=== PATIENT | female | born 1935 | race Caucasian/White ===

== ENCOUNTER 2020-10-15 20:40 | Observation (INO) ==
[2020-10-15] MEDS ORDERED: 0.9 % SODIUM CHLORIDE 1,000 ML IV ONE (21:13)
[2020-10-15] MEDS ORDERED: DIPH,PERTUSS(ACELL),TET VAC/PF 0.5 ML SYRINGE IM ONE (21:13)
--- NOTE | 2020-10-15 21:25 | Emergency Department Note ---
Syncope HPI General Chief Complaint: Syncope Stated Complaint: fainted Time Seen by Provider: 10/15/20 21:03 Source: patient, family, EMS, RN notes reviewed and old records reviewed Mode of arrival: EMS Limitations: no limitations and physical limitation History of Present Illness HPI Narrative: Narrative: A delightful 85-year-old female is brought in by EMS for syncope. The patient was seen earlier today for UTI and hip pain. She was treated with Macrobid and [place]. While back at her care facility the patient was attempting to stand up from the bedside commode after urination and had a syncopal event. Her nurse caregiver was at her bedside and held her and lowered her to the floor. She was not dropped nor does she complain of any other injuries or pain at this time. She denies preceding illness other than the UTI. She is not complaining of a headache or neck pain at this point in time. Continues to complain of hip pain. She there was no tonic-clonic activity per her caregiver there was no loss of bowel or bladder control per her caregiver. MD Complaint: loss of consciousness, felt faint and collapsed Onset (ago): hour(s) (1) Prodromal Symptoms: lightheaded -: second(s) Witnessed: yes - by other (EXTENSION ASSOCIATE) Context: after urination and standing up Injuries Sustained Associated with Event: none Current Symptoms: none History: other (Seen earlier today in this emergency department for UTI and hip pain) Treatments prior to arrival: none Related Data Home Medications Medication Instructions Recorded Confirmed acetaminophen 500 mg tablet 500 mg PO Q6H PRN 10/29/18 09/12/20 ferrous sulfate 325 mg (65 mg 325 mg PO QDAY 02/15/20 09/12/20 iron) tablet donepezil 5 mg tablet 10 mg PO QDAY tab 05/12/20 09/12/20 dexamethasone 4 mg tablet 6 mg PO QDAY tab 05/21/20 09/12/20 furosemide 20 mg tablet 20 mg PO QDAY PRN 06/05/20 09/12/20 multivitamin 1 tab PO QDAY tab 06/05/20 09/12/20 pantoprazole 40 mg tablet,delayed 40 mg PO QDAY tab 06/05/20 09/12/20 release hydrocodone 5 mg-acetaminophen 325 1 - 2 tab PO Q4-6H PRN tab 07/10/20 09/12/20 mg tablet Previous Rx's Medication Instructions Recorded memantine 10 mg tablet 10 mg PO QPM #90 tab 09/21/19 midodrine 5 mg tablet 2.5 mg PO TID #135 tab 12/19/19 mirabegron 50 mg tablet,extended See Rx Instructions .ROUTE 02/27/20 release 24 hr .COMPLEX #30 each hydrocodone 5 mg-acetaminophen 325 1 tab PO Q8H PRN #15 tab 08/09/20 mg tablet atorvastatin 10 mg tablet 10 mg PO QHS #90 tab 10/04/20 hydrocodone-acetaminophen 1 tab PO Q4H PRN #12 tab 10/15/20 nitrofurantoin monohyd/m-cryst 100 mg PO Q12H 7 Days #14 cap 10/15/20 [Macrobid] Allergies Allergy/AdvReac Type Severity Reaction Status Date / Time Sulfa (Sulfonamide Allergy Severe Hives Verified 08/15/20 08:01 Antibiotics) alendronate sodium AdvReac Mild GI upset Verified 08/15/20 08:01 [From Fosamax] ibuprofen [From Motrin] AdvReac Mild GI upset Verified 08/15/20 08:01 metformin AdvReac Mild diarrhea Verified 08/15/20 08:01 hydrocodone AdvReac Verified 10/15/20 20:50 Review of Systems ROS ROS Narrative: Narrative: All systems ED: reviewed and negative except as stated. PFSH Narrative Patient History Narrative: Narrative: Medical/Surgical/Family History All Active Problems (Updated 10/15/20 @ 23:56 by Nathanael Hensley MD) Injury of hip, left (Acute) Acute UTI (Acute) Syncope and collapse (Acute) Fracture of metatarsal of left foot, closed (Acute) S/P colectomy (Acute) Colonic mass (Acute) History of bloody stools (Acute) History of anemia (Acute) Shakiness (Acute) Anemia (Acute) Heme positive stool (Acute) Heart murmur (Acute) SOB (shortness of breath) (Acute) Urinary tract infection (Acute) Postural hypotension (Chronic) Dementia (Chronic) GERD (gastroesophageal reflux disease) (Chronic) Hyperlipidemia (Chronic) Urinary incontinence (Chronic) Dyslipidemia (Chronic) Iron deficiency anemia (Chronic) COVID-19 (Chronic) H/O knee surgery (Chronic) 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) Fatigue (Chronic) Syncope due to orthostatic hypotension (Chronic) Hyponatremia (Chronic) BPPV (benign paroxysmal positional vertigo) (Chronic) Alzheimer disease (Chronic) Diastolic congestive heart failure (Chronic) Sinus bradycardia (Chronic) Hyperlipidemia (Chronic) Postural hypotension (Chronic) Dementia (Chronic) GERD (gastroesophageal reflux disease) (Chronic) Diabetes mellitus type II, controlled (Chronic) Edema (Chronic) Exposure to TB (Chronic) High cholesterol (Chronic) Heart trouble (Chronic) Type 2 diabetes mellitus (Chronic ~2007) Depression (Chronic) Arthritis (Chronic ~1989) Anemia (Chronic) Medical History Alzheimer disease Anemia Arthritis (~1989) BPPV (benign paroxysmal positional vertigo) COVID-19 Dementia Dementia Depression Diabetes mellitus type II, controlled Diastolic congestive heart failure Dyslipidemia Edema Exposure to TB Childhood, [id number] Fatigue Fracture of metatarsal of left foot, closed GERD (gastroesophageal reflux disease) GERD (gastroesophageal reflux disease) Heart trouble High cholesterol History of anemia History of bloody stools Hyperlipidemia Hyperlipidemia Hyponatremia Iron deficiency anemia Pigmented skin lesion of suspected malignant nature Postural hypotension Postural hypotension Sinus bradycardia Syncope due to orthostatic hypotension Type 2 diabetes mellitus (~2007) Urinary incontinence Surgical History H/O knee surgery Bilateral History of cholecystectomy (~1971) Family History Father Heart attack Mother Tuberculosis Social History Smoking Status: Never smoker Alcohol Intake Frequency: holiday/special occasion only Substance Use: does not use Exam Narrative Narrative: Narrative: General Limitations: no limitations and physical limitation General appearance: Present alert, in no apparent distress and thin Head Head: Present atraumatic, normocephalic and normal inspection Eye Eye: Present normal appearance, PERRL and EOMI; Absent scleral icterus, conjunctival injection and periorbital swelling ENT ENT: Present normal exam, normal oropharynx, mucous membranes moist and normal external ear exam Neck Neck: Present normal inspection, full ROM and trachea midline; Absent tenderness, lymphadenopathy and thyromegaly Chest Chest: Present normal inspection and symmetric chest wall rise; Absent tenderness Respiratory Respiratory: Present normal lung sounds bilaterally; Absent respiratory distre ss, wheezes, stridor, accessory muscle use and prolonged expiratory phase Cardiovascular Cardiovascular: Present regular rate and normal rhythm; Absent systolic murmur and diastolic murmur Adbominal Abdominal: Present soft and normal bowel sounds; Absent distention, tenderness, guarding, rebound, rigidity, organomegaly and mass Extremities Extremities: Present normal inspection, full ROM, tenderness and normal capillary refill; Absent pedal edema, pretibial edema and calf tenderness Back Back: Present normal inspection and full ROM; Absent tenderness, CVA tenderness (R), CVA tenderness (L) and spinous process tenderness Neurological Neurological: Present alert, oriented X3 and CN II-XII intact; Absent motor sensory deficit Psychiatric Psychiatric: Present normal affect and normal mood Skin Skin: Present warm (WNL), dry and other (Skin tear on right castillo) Course Vital Signs Vital signs: Vital Signs Temperature 97.4 F 10/15/20 20:41 Pulse Rate 80 10/15/20 20:41 Respiratory Rate 18 10/15/20 20:41 Blood Pressure 139/50 10/15/20 20:41 Pulse Oximetry (%) 98 10/15/20 20:41 Temperature 97.4 F 10/15/20 20:41 Pulse Rate 102 H 10/15/20 23:31 Respiratory Rate 18 10/15/20 20:41 Blood Pressure 126/71 10/15/20 23:31 Pulse Oximetry (%) 94 10/15/20 23:31 [facility] MDM Narrative Medical decision making narrative: Narrative: Medical Records Medical records reviewed: Yes I reviewed the patient's medical records. Lab Data Result diagrams: 10/15/20 21:40 10/15/20 21:40 Labs: Lab Results 10/15/20 10/15/20 10/15/20 Range/Units 21:40 21:40 21:40 WBC 12.0 H (4.5-11.0) K/mcL RBC 3.11 L (4.00-5.20) M/mcL Hgb 10.1 L (12.0-15.0) g/dL Hct 30.7 L (36.0-48.0) % MCV 98.7 (80.0-100.0) fL MCH 32.5 (26.0-34.0) pg MCHC 32.9 (31.0-36.0) g/dL RDW 13.2 (11.5-14.5) % Plt Count 207 (140-440) K/mcL MPV 9.7 (7.4-10.4) fL Neut % (Auto) 82.3 H (38.0-78.0) % Lymph % (Auto) 9.6 L (15.0-49.0) % [place] % (Auto) 7.1 (1.0-12.0) % Eos % (Auto) 0.3 (0.0-7.0) % Baso % (Auto) 0.7 (0.0-2.0) % Lymph # (Auto) 1.15 L (1.50-4.80) K/mcL [place] # (Auto) 0.85 (0.10-0.90) K/mcL Eos # (Auto) 0.04 (0.00-0.70) K/mcL Baso # (Auto) 0.08 (0.00-0.20) K/mcL Absolute Neutrophils 9.88 H (1.80-8.00) K/mcL VBG Lactic Acid 0.8 (0.5-2.0) mmol/L Sodium 135 (133-145) mmol/L Potassium 3.9 (3.3-5.1) mmol/L Chloride 97 (96-108) mmol/L Carbon Dioxide 26 (22-30) mmol/L Anion Gap 12.0 (8.0-16.0) BUN 18 (8-23) mg/dL Creatinine 1.1 (0.6-1.1) mg/dL GFR Calculation 45 Glucose 124 H (70-105) mg/dL Calcium 9.1 (8.6-10.4) mg/dL Total Bilirubin 0.4 (0.1-1.0) mg/dL AST 19 (<32) U/L ALT 14 (<40) U/L Alkaline Phosphatase 71 (39-117) U/L Total Creatine Kinase 95 (24-170) U/L Troponin T (<0.03) ng/mL Total Protein 6.8 (5.9-8.4) gm/dL Albumin 4.2 (3.2-5.2) gm/dL Globulin 2.6 (2.2-3.7) gm/dL Albumin/Globulin Ratio 1.6 (1.0-2.3) 10/15/20 Range/Units 21:40 WBC (4.5-11.0) K/mcL RBC (4.00-5.20) M/mcL Hgb (12.0-15.0) g/dL Hct (36.0-48.0) % MCV (80.0-100.0) fL MCH (26.0-34.0) pg MCHC (31.0-36.0) g/dL RDW (11.5-14.5) % Plt Count (140-440) K/mcL MPV (7.4-10.4) fL Neut % (Auto) (38.0-78.0) % Lymph % (Auto) (15.0-49.0) % [place] % (Auto) (1.0-12.0) % Eos % (Auto) (0.0-7.0) % Baso % (Auto) (0.0-2.0) % Lymph # (Auto) (1.50-4.80) K/mcL [place] # (Auto) (0.10-0.90) K/mcL Eos # (Auto) (0.00-0.70) K/mcL Baso # (Auto) (0.00-0.20) K/mcL Absolute Neutrophils (1.80-8.00) K/mcL VBG Lactic Acid (0.5-2.0) mmol/L Sodium (133-145) mmol/L Potassium (3.3-5.1) mmol/L Chloride (96-108) mmol/L Carbon Dioxide (22-30) mmol/L Anion Gap (8.0-16.0) BUN (8-23) mg/dL Creatinine (0.6-1.1) mg/dL GFR Calculation Glucose (70-105) mg/dL Calcium (8.6-10.4) mg/dL Total Bilirubin (0.1-1.0) mg/dL AST (<32) U/L ALT (<40) U/L Alkaline Phosphatase (39-117) U/L Total Creatine Kinase (24-170) U/L Troponin T < 0.01 (<0.03) ng/mL Total Protein (5.9-8.4) gm/dL Albumin (3.2-5.2) gm/dL Globulin (2.2-3.7) gm/dL Albumin/Globulin Ratio (1.0-2.3) ED POC Tests ED POC Tests: ELIU - SARS Antigen Negative Radiology Data Radiology results reviewed: Yes I reviewed the patient's radiology results. Radiology results narrative: Head CT is no acute intracranial abnormality. Chest x-ray COPD pattern NAD, pelvis NAD. Pulse Oximetry Data Pulse Ox %: 94 Interpretation: 94% on room air within normal limits. Discharge Plan Patient/Caregiver Discharge Instructions Pt seen by ACCOUNT MAINTENANCE REPRESENTATIVE/PA only: No Clinical Impression: Syncope and collapse Patient Disposition: Xfer As Inpt ([facility]) Condition: Good Follow up with: Gregory Suarez DO [Primary Care Provider] - Prescriptions: No Action midodrine 5 mg tablet 2.5 mg PO TID Qty: 135 RF: 3 mirabegron [Myrbetriq] 50 mg tablet extended release 24 hr See Rx Instructions .ROUTE .COMPLEX Qty: 30 RF: 10 atorvastatin 10 mg tablet 10 mg tablet 10 mg PO QHS Qty: 90 RF: 1 memantine 10 mg tablet 10 mg PO QPM Qty: 90 RF: 3 ferrous sulfate 325 mg (65 mg iron) tablet 325 mg PO QDAY RF: 0 acetaminophen [Tylenol Extra Strength] 500 mg tablet 500 mg PO Q6H PRN (Reason: Pain) RF: 0 multivitamin Tablet 1 tab PO QDAY RF: 0 dexamethasone 4 mg tablet 6 mg PO QDAY RF: 0 donepezil 5 mg tablet 10 mg PO QDAY RF: 0 hydrocodone-acetaminophen 5-325 mg tablet 1 tab PO Q8H PRN (Reason: pain) Qty: 15 RF: 0 pantoprazole 40 mg tablet,delayed release (DR/EC) 40 mg PO QDAY RF: 0 furosemide 20 mg tablet 20 mg PO QDAY PRNRF: 0 hydrocodone-acetaminophen 5-325 mg tablet 1 - 2 tab PO Q4-6H PRNRF: 0 hydrocodone-acetaminophen 5-325 mg tablet 1 tab PO Q4H PRN (Reason: pain) Qty: 12 RF: 0 nitrofurantoin monohyd/m-cryst [Macrobid] 100 mg capsule 100 mg PO Q12H 7 Days Qty: 14 RF: 0
[2020-10-15] MEDS ORDERED: cefTRIAXone 1 GM VIAL IV ONE (22:00)
[2020-10-15 23:06] LABS: Basophils # (Auto) 0.08 K/mcL (0.00-0.20); Basophils % (Auto) 0.7 % (0.0-2.0); Eosinophils # (Auto) 0.04 K/mcL (0.00-0.70); Eosinophils % (Auto) 0.3 % (0.0-7.0); Hematocrit 30.7 % (36.0-48.0); Hemoglobin 10.1 g/dL (12.0-15.0); Lymphocytes # (Auto) 1.15 K/mcL (1.50-4.80); Lymphocytes % (Auto) 9.6 % (15.0-49.0); Mean Cell Volume 98.7 fL (80.0-100.0); Mean Corpuscular HGB Conc 32.9 g/dL (31.0-36.0); Mean Platelet Volume 9.7 fL (7.4-10.4); Monocytes # (Auto) 0.85 K/mcL (0.10-0.90); Monocytes % (Auto) 7.1 % (1.0-12.0); Neutrophils % (Auto) 82.3 % (38.0-78.0); Platelet Count 207 K/mcL (140-440); RBC 3.11 M/mcL (4.00-5.20); Red Cell Distribution Width 13.2 % (11.5-14.5)
[2020-10-15 23:32] LABS: Creatine Kinase 95 U/L (24-170)
[2020-10-15 23:33] LABS: ALT/SGPT 14 U/L (<40); AST/SGOT 19 U/L (<32); Albumin 4.2 gm/dL (3.2-5.2); Albumin/Globulin Ratio 1.6 (1.0-2.3); Alkaline Phosphatase 71 U/L (39-117); Bilirubin,Total 0.4 mg/dL (0.1-1.0); Blood Urea Nitrogen 18 mg/dL (8-23); Calcium 9.1 mg/dL (8.6-10.4); Carbon Dioxide 26 mmol/L (22-30); Chloride 97 mmol/L (96-108); Globulin 2.6 gm/dL (2.2-3.7); Glomerular Filtration Rate 45; Glucose 124 mg/dL (70-105)
--- NOTE | 2020-10-16 07:12 | Internal Med History&Physical ---
HPI History of Present Illness Patient information: Note initiated : 10/16/20 at 7:08 am Service Date, if different from initiated Date: [] Patient: Shannan Canseco 85 y/o F admitted on 10/16/20 for fainted. Chief Complaint: [] History of present illness: Ms. Canseco is a 85 year old F Patient presented ED yesterday after fall. Was found to have urinary tract infection. Sent back to the nursing facility where after going to the bathroom she got up and had a syncopal episode. She was brought back into the ED and had a repeat pelvis chest and head imaging which was unremarkable. Sinus rhythm. Has some hip pain where she fall but otherwise no complaints. Review of Systems: Pertinent positives as above. Denies headache/fever/chills/nausea/vomiting/chest or abdominal pain/cough/dyspnea/diarrhea. Remaining 10 point review of system reviewed negative PFSH PFSH All Active Problems (Updated 10/15/20 @ 23:56 by Nathanael Hensley MD) Injury of hip, left (Acute) Acute UTI (Acute) Syncope and collapse (Acute) Fracture of metatarsal of left foot, closed (Acute) S/P colectomy (Acute) Colonic mass (Acute) History of bloody stools (Acute) History of anemia (Acute) Shakiness (Acute) Anemia (Acute) Heme positive stool (Acute) Heart murmur (Acute) SOB (shortness of breath) (Acute) Urinary tract infection (Acute) Postural hypotension (Chronic) Dementia (Chronic) GERD (gastroesophageal reflux disease) (Chronic) Hyperlipidemia (Chronic) Urinary incontinence (Chronic) Dyslipidemia (Chronic) Iron deficiency anemia (Chronic) COVID-19 (Chronic) H/O knee surgery (Chronic) 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) Fatigue (Chronic) Syncope due to orthostatic hypotension (Chronic) Hyponatremia (Chronic) BPPV (benign paroxysmal positional vertigo) (Chronic) Alzheimer disease (Chronic) Diastolic congestive heart failure (Chronic) Sinus bradycardia (Chronic) Hyperlipidemia (Chronic) Postural hypotension (Chronic) Dementia (Chronic) GERD (gastroesophageal reflux disease) (Chronic) Diabetes mellitus type II, controlled (Chronic) Edema (Chronic) Exposure to TB (Chronic) High cholesterol (Chronic) Heart trouble (Chronic) Type 2 diabetes mellitus (Chronic ~2007) Depression (Chronic) Arthritis (Chronic ~1989) Anemia (Chronic) Medical History Alzheimer disease Anemia Arthritis (~1989) BPPV (benign paroxysmal positional vertigo) COVID-19 Dementia Dementia Depression Diabetes mellitus type II, controlled Diastolic congestive heart failure Dyslipidemia Edema Exposure to TB Childhood, [id number] Fatigue Fracture of metatarsal of left foot, closed GERD (gastroesophageal reflux disease) GERD (gastroesophageal reflux disease) Heart trouble High cholesterol History of anemia History of bloody stools Hyperlipidemia Hyperlipidemia Hyponatremia Iron deficiency anemia Pigmented skin lesion of suspected malignant nature Postural hypotension Postural hypotension Sinus bradycardia Syncope due to orthostatic hypotension Type 2 diabetes mellitus (~2007) Urinary incontinence Surgical History H/O knee surgery Bilateral History of cholecystectomy (~1971) Family History Father Heart attack Mother Tuberculosis Social History marital status: occupational status: retired alcohol intake frequency: holiday/special occasion only substance use type: does not use MEDS/ALLERGIES Home Medications and Allergies Home Medications Medication Instructions Recorded Confirmed Type acetaminophen 500 mg tablet 500 mg PO Q6H PRN 10/29/18 10/16/20 History memantine 10 mg tablet 10 mg PO QPM #90 tab 09/21/19 10/16/20 Rx midodrine 5 mg tablet 2.5 mg PO TID #135 tab 12/19/19 10/16/20 Rx ferrous sulfate 325 mg (65 mg 325 mg PO QDAY 02/15/20 10/16/20 History iron) tablet mirabegron 50 mg tablet,extended See Rx Instructions .ROUTE 02/27/20 10/16/20 Rx release 24 hr .COMPLEX #30 each donepezil 5 mg tablet 10 mg PO QDAY tab 05/12/20 10/16/20 History furosemide 20 mg tablet 20 mg PO QDAY PRN 06/05/20 10/16/20 History multivitamin 1 tab PO QDAY tab 06/05/20 10/16/20 History pantoprazole 40 mg tablet,delayed 40 mg PO QDAY tab 06/05/20 10/16/20 History release hydrocodone 5 mg-acetaminophen 325 1 - 2 tab PO Q4-6H PRN tab 07/10/20 10/16/20 History mg tablet hydrocodone 5 mg-acetaminophen 325 1 tab PO Q8H PRN #15 tab 08/09/20 10/16/20 Rx mg tablet atorvastatin 10 mg tablet 10 mg PO QHS #90 tab 10/04/20 10/16/20 Rx hydrocodone-acetaminophen 1 tab PO Q4H PRN #12 tab 10/15/20 10/16/20 Rx nitrofurantoin monohyd/m-cryst 100 mg PO Q12H 7 Days #14 cap 10/15/20 10/16/20 Rx [Macrobid] Allergies Allergy/AdvReac Type Severity Reaction Status Date / Time Sulfa (Sulfonamide Allergy Severe Hives Verified 08/15/20 08:01 Antibiotics) alendronate sodium AdvReac Mild GI upset Verified 08/15/20 08:01 [From Fosamax] ibuprofen [From Motrin] AdvReac Mild GI upset Verified 08/15/20 08:01 metformin AdvReac Mild diarrhea Verified 08/15/20 08:01 hydrocodone AdvReac Verified 10/15/20 20:50 EXAM Constitutional Vitals: Temp Pulse Resp BP Pulse Ox 98.1 F 78 16 151/74 98 10/16/20 02:51 10/16/20 02:51 10/16/20 02:51 10/16/20 02:51 10/16/20 02:51 Exam: General: Alert, Awake, No acute Distress Eyes/N/T: EOMI, PERRL, dry MM Head/Neck: neck supple, normocephalic atraumatic CV: RRR, 2/6 SM , normal s1/s2 Pulm: Clear b/l, no wheezing/rhonchi/rales Abd: soft, nontender, +BS x4 Ext: no clubbing/cyanosis/edema Neuro: Alert, no focal deficits, moves all extremities, CN 2-12 grossly intact, symmetrical strength b/l upper/lower, sensations intact b/l upper/lower Skin: warm/dry DATA Data Completed and Pending Labs: Labs from last 24 hours 10/16/20 10/16/20 10/15/20 06:17 06:17 21:40 WBC Pending RBC Pending Hgb Pending Hct Pending MCV Pending MCH Pending MCHC Pending RDW Pending Plt Count Pending MPV Pending Neut % (Auto) Pending Lymph % (Auto) [place] % (Auto) Eos % (Auto) Baso % (Auto) Lymph # (Auto) [place] # (Auto) Eos # (Auto) Baso # (Auto) Absolute Neutrophils VBG Lactic Acid Sodium Pending Potassium Pending Chloride Pending Carbon Dioxide Pending Anion Gap Pending BUN Pending Creatinine Pending GFR Calculation Pending Glucose Pending Uric Acid Pending Calcium Pending Phosphorus Pending Magnesium Pending Total Bilirubin Pending Direct Bilirubin Pending GGT Pending AST Pending ALT Pending Alkaline Phosphatase Pending Lactate Dehydrogenase Pending Total Creatine Kinase Troponin T < 0.01 Total Protein Pending Albumin Pending Globulin Pending Albumin/Globulin Ratio Pending Triglycerides Pending 10/15/20 10/15/20 10/15/20 21:40 21:40 21:40 WBC 12.0 H RBC 3.11 L Hgb 10.1 L Hct 30.7 L MCV 98.7 MCH 32.5 MCHC 32.9 RDW 13.2 Plt Count 207 MPV 9.7 Neut % (Auto) 82.3 H Lymph % (Auto) 9.6 L [place] % (Auto) 7.1 Eos % (Auto) 0.3 Baso % (Auto) 0.7 Lymph # (Auto) 1.15 L [place] # (Auto) 0.85 Eos # (Auto) 0.04 Baso # (Auto) 0.08 Absolute Neutrophils 9.88 H VBG Lactic Acid 0.8 Sodium 135 Potassium 3.9 Chloride 97 Carbon Dioxide 26 Anion Gap 12.0 BUN 18 Creatinine 1.1 GFR Calculation 45 Glucose 124 H Uric Acid Calcium 9.1 Phosphorus Magnesium Total Bilirubin 0.4 Direct Bilirubin GGT AST 19 ALT 14 Alkaline Phosphatase 71 Lactate Dehydrogenase Total Creatine Kinase 95 Troponin T Total Protein 6.8 Albumin 4.2 Globulin 2.6 Albumin/Globulin Ratio 1.6 Triglycerides A/P Narrative A/P Narrative: A: *Vasovagal versus orthostatic hypotension (h/o orthostatic hypotension) syncope: -is on midodrine for orthostatic hypotension *UTI: *Generalized weakness/deconditioning: *Dementia: *GERD: *h/o grade I diastolic dysfunction: P: -IVF -orthostatic VS -Rocephin pending UC -Hold home Lasix but continue other medications - -pT/OT -Case management for placement needs -ppx: Lovenox/home PPI Time Spent With Patient Time: Total time spent is greater than 50% in coordination of care (as documented) at patient's floor/unit and/or counseling patient:
[2020-10-16 07:33] LABS: Basophils # (Auto) 0.06 K/mcL (0.00-0.20); Basophils % (Auto) 0.6 % (0.0-2.0); Eosinophils # (Auto) 0.03 K/mcL (0.00-0.70); Eosinophils % (Auto) 0.3 % (0.0-7.0); Hematocrit 27.8 % (36.0-48.0); Hemoglobin 9.2 g/dL (12.0-15.0); Lymphocytes % (Auto) 17.8 % (15.0-49.0); Mean Cell Volume 96.9 fL (80.0-100.0); Mean Corpuscular HGB Conc 33.1 g/dL (31.0-36.0); Mean Platelet Volume 10.3 fL (7.4-10.4); Monocytes # (Auto) 0.72 K/mcL (0.10-0.90); Monocytes % (Auto) 7.5 % (1.0-12.0); Neutrophils % (Auto) 73.8 % (38.0-78.0); Platelet Count 187 K/mcL (140-440); RBC 2.87 M/mcL (4.00-5.20); Red Cell Distribution Width 13.2 % (11.5-14.5); WBC 9.5 K/mcL (4.5-11.0)
[2020-10-16 07:48] LABS: ALT/SGPT 11 U/L (<40); AST/SGOT 17 U/L (<32); Albumin 3.8 gm/dL (3.2-5.2); Albumin/Globulin Ratio 1.8 (1.0-2.3); Alkaline Phosphatase 64 U/L (39-117); Bilirubin,Direct < 0.2 mg/dL (0-0.3); Bilirubin,Total 0.3 mg/dL (0.1-1.0); Blood Urea Nitrogen 15 mg/dL (8-23); Calcium 8.5 mg/dL (8.6-10.4); Carbon Dioxide 23 mmol/L (22-30); Chloride 100 mmol/L (96-108); Globulin 2.1 gm/dL (2.2-3.7); Glomerular Filtration Rate 58; Glucose 107 mg/dL (70-105); Lactate Dehydrogenase 190 U/L (135-225); Phosphorous 3.1 mg/dL (2.5-4.5); Triglycerides 82 mg/dL (<150); Uric Acid 3.7 mg/dL (2.5-8.0)
--- NOTE | 2020-10-16 08:56 | XRay Report ---
HISTORY: Increased weakness, fainted FINDINGS: There is mild pulmonary fibrosis, most evident in the upper lobes. A couple calcified granulomata are present in the right lung. No suspicious mass has developed. There is no evidence of pneumonia or congestive heart failure. The heart is normal in size and contour. Comparison with the prior exam from 05/12/20 shows no significant change. IMPRESSION: stable mild pulmonary fibrosis and old granulomatous disease Interpreted and Authenticated by: Jeffrey Odonnell 10/16/20
--- NOTE | 2020-10-16 08:57 | XRay Report ---
HISTORY: Fell, pelvic injury, unable to bear weight FINDINGS: The bones are osteopenic. There is no evidence of fracture or destructive bone lesion. Hip joint spaces are normal in width. There are small osteophytes along the lateral borders of both femoral heads. SI joints and symphysis pubis are normal. Scattered calcified plaques are present in the iliac and femoral arteries. There is a row of surgical sutures in the right upper pelvis. IMPRESSION: No fracture Interpreted and Authenticated by: Jeffrey Odonnell 10/16/20
--- NOTE | 2020-10-16 08:59 | Cat Scan Report ---
History: Syncope and fell TECHNIQUE: The brain was imaged without contrast in axial plane at 2.5 mm intervals. The radiation exposure was limited using dose reduction technology. FINDINGS: There are moderate age-related degenerative changes. There is moderate atrophy both above and below the tentorium. Large confluent areas of abnormal decreased attenuation are present in the centrum semiovale throughout the frontal and parietal lobes bilaterally. There is no evidence of an infarct. No hemorrhage or mass effect are present. The ventricles are enlarged but proportionate to the atrophy. No abnormal extra-axial fluid collection is present. Comparison with the prior MRI done on 10/14/19 shows no significant change. Bone windows show no skull fracture. IMPRESSION: Stable age-related degenerative changes and no acute abnormality Interpreted and Authenticated by: Jeffrey Odonnell 10/16/20
[2020-10-16] MEDS ORDERED: SENNOSIDES 1 TABLET PO PRN (09:04)
[2020-10-16] MEDS ORDERED: MAGNESIUM SULFATE 2 GM/50 ML BAG IV PRN (09:04)
[2020-10-16] MEDS ORDERED: HYDROcodone/APAP 5/325MG TABLET PO PRN (09:04)
[2020-10-16] MEDS ORDERED: POTASSIUM CHLORIDE 20 MEQ TABLET PO PRN ×2 (09:04)
[2020-10-16] MEDS ORDERED: POLYETHYLENE GLYCOL 3350 17 GM PACKET PO PRN (09:04)
[2020-10-16] MEDS ORDERED: ONDANSETRON 4 MG/2 ML VIAL IV PRN (09:04)
[2020-10-16] MEDS ORDERED: POTASSIUM CHLORIDE 40 MEQ in DEXTROSE 5% IN WATER 500 ML IV PRN (09:04)
[2020-10-16] MEDS ORDERED: IPRATROPIUM/ALBUTEROL 3 ML AMPUL.NEB NEB PRN (09:04)
[2020-10-16] MEDS ORDERED: cefTRIAXone 1 GM in DEXTROSE 5% IN WATER 50 ML IV SCH (09:15)
[2020-10-16] MEDS ORDERED: 0.9 % SODIUM CHLORIDE 1,000 ML IV SCH (09:15)
[2020-10-16] MEDS: DONEPEZIL 10 MG TABLET PO SCH (09:51)
--- NOTE | 2020-10-16 10:37 | Discharge Summary ---
Discharge Provider Provider Patient information: Note initiated : 10/16/20 at 10:37 am Service Date, if different from initiated Date: [] Patient: Shannan Canseco 85 y/o F admitted on 10/16/20 for fainted. Chief Complaint: [] Date of admission: 10/16/20 00:34 Discharge date: 10/17/20 Primary care physician: Gregory Suarez DO Consults: 10/15/20 Consult to Physician [CONS] Stat Comment: Consulting Provider: Ty Harden Reason For Exam: Physician to Consult Discharge Meds Discharge Medications Home Medications acetaminophen 500 mg tablet 500 mg PO Q6H PRN 10/29/18 [History Confirmed 10/16/20 Last Taken 10/15/20] memantine 10 mg tablet 10 mg PO QPM #90 tab 09/21/19 [Rx Confirmed 10/16/20 Last Taken 10/15/20] midodrine 5 mg tablet 2.5 mg PO TID #135 tab 12/19/19 [Rx Confirmed 10/16/20 Last Taken 10/16/20] ferrous sulfate 325 mg (65 mg iron) tablet 325 mg PO QDAY 02/15/20 [History Confirmed 10/16/20 Last Taken 10/16/20] mirabegron 50 mg tablet,extended release 24 hr See Rx Instructions .ROUTE .COMP YVROSE #30 each 02/27/20 [Rx Confirmed 10/16/20 Last Taken 10/16/20] donepezil 5 mg tablet 10 mg PO QDAY tab 05/12/20 [History Confirmed 10/16/20 Last Taken 10/16/20] furosemide 20 mg tablet 20 mg PO QDAY PRN 06/05/20 [History Confirmed 10/16/20 Last Taken Unknown] multivitamin 1 tab PO QDAY tab 06/05/20 [History Confirmed 10/16/20 Last Taken 10/16/20] pantoprazole 40 mg tablet,delayed release 40 mg PO QDAY tab 06/05/20 [History Confirmed 10/16/20 Last Taken 10/15/20] hydrocodone 5 mg-acetaminophen 325 mg tablet 1 - 2 tab PO Q4-6H PRN tab 07/10/20 [History Confirmed 10/16/20 Last Taken Unknown] hydrocodone 5 mg-acetaminophen 325 mg tablet 1 tab PO Q8H PRN #15 tab 08/09/20 [Rx Confirmed 10/16/20 Last Taken Unknown] atorvastatin 10 mg tablet 10 mg PO QHS #90 tab 10/04/20 [Rx Confirmed 10/16/20 Last Taken 10/15/20] hydrocodone-acetaminophen 1 tab PO Q4H PRN #12 tab 10/15/20 [Rx Confirmed 10/16/20 Last Taken Unknown] ciprofloxacin HCl [Cipro] 500 mg PO Q12H #6 tab 10/17/20 [Rx Last Taken Unknown] COURSE Hospital Course Hospital course: History of present illness: Ms. Canseco is a 85 year old F Patient presented ED yesterday after fall. Was found to have urinary tract infection. Sent back to the nursing facility where after going to the bathroom she got up and had a syncopal episode. She was brought back into the ED and had a repeat pelvis chest and head imaging which was unremarkable. Sinus rhythm. Has some hip pain where she fall but otherwise no complaints. 10/17 No overnight or new complaints. Stable for discharge. A: *Vasovagal versus orthostatic hypotension (h/o orthostatic hypotension) syncope: -is on midodrine for orthostatic hypotension *UTI: *Generalized weakness/deconditioning: *Dementia: *GERD: *h/o grade I diastolic dysfunction: Discharge diagnosis: Vasovagal syncope UTI generalized weakness deconditioning dementia Secondary discharge diagnosis: GERD Time Spent with Patient Time attestation: Total time spent providing and/or coordinating discharge services: Time spent: Greater than 30 minutes EXAM Constitutional Vitals: Temp Pulse Resp BP Pulse Ox 97.2 F 80 16 121/66 96 10/16/20 08:00 10/16/20 08:00 10/16/20 08:00 10/16/20 08:00 10/16/20 08:00 Discharge Data Data Completed and Pending Labs on day of discharge: Labs from last 24 hours 10/16/20 10/16/20 10/15/20 06:17 06:17 21:40 WBC 9.5 RBC 2.87 L Hgb 9.2 L Hct 27.8 L MCV 96.9 MCH 32.1 MCHC 33.1 RDW 13.2 Plt Count 187 MPV 10.3 Neut % (Auto) 73.8 Lymph % (Auto) 17.8 [place] % (Auto) 7.5 Eos % (Auto) 0.3 Baso % (Auto) 0.6 Lymph # (Auto) 1.70 [place] # (Auto) 0.72 Eos # (Auto) 0.03 Baso # (Auto) 0.06 Absolute Neutrophils 7.03 VBG Lactic Acid Sodium 134 Potassium 3.9 Chloride 100 Carbon Dioxide 23 Anion Gap 11.0 BUN 15 Creatinine 0.9 GFR Calculation 58 Glucose 107 H Uric Acid 3.7 Calcium 8.5 L Phosphorus 3.1 Magnesium 2.0 Total Bilirubin 0.3 Direct Bilirubin < 0.2 GGT 12 AST 17 ALT 11 Alkaline Phosphatase 64 Lactate Dehydrogenase 190 Total Creatine Kinase Troponin T < 0.01 Total Protein 5.9 Albumin 3.8 Globulin 2.1 L Albumin/Globulin Ratio 1.8 Triglycerides 82 10/15/20 10/15/20 10/15/20 21:40 21:40 21:40 WBC 12.0 H RBC 3.11 L Hgb 10.1 L Hct 30.7 L MCV 98.7 MCH 32.5 MCHC 32.9 RDW 13.2 Plt Count 207 MPV 9.7 Neut % (Auto) 82.3 H Lymph % (Auto) 9.6 L [place] % (Auto) 7.1 Eos % (Auto) 0.3 Baso % (Auto) 0.7 Lymph # (Auto) 1.15 L [place] # (Auto) 0.85 Eos # (Auto) 0.04 Baso # (Auto) 0.08 Absolute Neutrophils 9.88 H VBG Lactic Acid 0.8 Sodium 135 Potassium 3.9 Chloride 97 Carbon Dioxide 26 Anion Gap 12.0 BUN 18 Creatinine 1.1 GFR Calculation 45 Glucose 124 H Uric Acid Calcium 9.1 Phosphorus Magnesium Total Bilirubin 0.4 Direct Bilirubin GGT AST 19 ALT 14 Alkaline Phosphatase 71 Lactate Dehydrogenase Total Creatine Kinase 95 Troponin T Total Protein 6.8 Albumin 4.2 Globulin 2.6 Albumin/Globulin Ratio 1.6 Triglycerides Discharge Plan Patient/Caregiver Discharge Instructions Activity: increase activity as tolerated Diet: Regular Diet Prescriptions: New ciprofloxacin HCl [Cipro] 500 mg tablet 500 mg PO Q12H Qty: 6 RF: 0 Continued midodrine 5 mg tablet 2.5 mg PO TID Qty: 135 RF: 3 mirabegron [Myrbetriq] 50 mg tablet extended release 24 hr See Rx Instructions .ROUTE .COMPLEX Qty: 30 RF: 10 atorvastatin 10 mg tablet 10 mg tablet 10 mg PO QHS Qty: 90 RF: 1 memantine 10 mg tablet 10 mg PO QPM Qty: 90 RF: 3 ferrous sulfate 325 mg (65 mg iron) tablet 325 mg PO QDAY RF: 0 acetaminophen [Tylenol Extra Strength] 500 mg tablet 500 mg PO Q6H PRN (Reason: Pain) RF: 0 multivitamin Tablet 1 tab PO QDAY RF: 0 donepezil 5 mg tablet 10 mg PO QDAY RF: 0 hydrocodone-acetaminophen 5-325 mg tablet 1 tab PO Q8H PRN (Reason: pain) Qty: 15 RF: 0 pantoprazole 40 mg tablet,delayed release (DR/EC) 40 mg PO QDAY RF: 0 furosemide 20 mg tablet 20 mg PO QDAY PRN (Reason: Pain) RF: 0 hydrocodone-acetaminophen 5-325 mg tablet 1 - 2 tab PO Q4-6H PRN (Reason: Pain (Scale Score 1-3)) RF: 0 hydrocodone-acetaminophen 5-325 mg tablet 1 tab PO Q4H PRN (Reason: pain) Qty: 12 RF: 0 Discontinued nitrofurantoin monohyd/m-cryst [Macrobid] 100 mg capsule 100 mg PO Q12H 7 Days Qty: 14 RF: 0 Follow Up Plan Follow up with: Gregory Suarez DO [Primary Care Provider] - Patient Disposition: Xfer SNF Prognosis: Fair Rehab Potential: Fair I certify that the patient requires SNF services: Yes Overall status at discharge: patient is progressing back to baseline Discharge Orders: Discharge Order (Routine); Ordered 10/17/20 Ordered By: Ty Harden
[2020-10-16] MEDS: ACETAMINOPHEN 500 MG TABLET PO PRN ×2 (12:16→20:44)
[2020-10-16] MEDS: MIDODRINE 5 MG TABLET PO SCH ×2 (12:16→20:13)
[2020-10-16] MEDS: 0.9 % SODIUM CHLORIDE 10 ML SYRINGE IV SCH ×2 (14:32→20:14)
[2020-10-16] MEDS: cefTRIAXone 1 GM VIAL IV SCH (14:32)
--- NOTE | 2020-10-16 15:25 | EKG ---
[facility] Test Date: 2020-10-16 Pat Name: Shannan Canseco Department: ED Room: Gender: Female Technical Support Intern: : 1935 Requested By: Nathanael Hensley Order Number: [id number] Reading MD: Theo Love M.D. Measurements Intervals [place] Rate: 96 P: 64 AL: 194 QRS: 20 QRSD: 74 T: 60 QT: 345 QTc: 436 Interpretive Statements Sinus rhythm NO PRIOR TRACING FOR COMPARISON NORMAL TRACING Electronically Signed On 10-16-2020 15:25:43 PDT by Theo Love M.D. /[id number]/[id number]
[2020-10-16] MEDS: DOCUSATE SODIUM 100 MG CAPSULE PO SCH (20:14)
[2020-10-16] MEDS ORDERED: ATORVASTATIN 10 MG TABLET PO SCH (21:00)
[2020-10-16] MEDS ORDERED: MEMANTINE 10 MG TABLET PO SCH (21:00)
[2020-10-16] MEDS: HYDROcodone/APAP 5/325MG TABLET PO PRN (22:14)
[2020-10-17] MEDS: 0.9 % SODIUM CHLORIDE 10 ML SYRINGE IV SCH (05:10)
[2020-10-17] MEDS ORDERED: ENOXAPARIN 30 MG/0.3 ML SYRINGE SQ SCH (09:00)
[2020-10-17] MEDS ORDERED: PANTOPRAZOLE 40 MG TABLET PO SCH (09:00)
[2020-10-17] MEDS ORDERED: Mirabegron [Myrbetriq] 50 mg tablet extended release PO SCH (09:00)
[2020-10-17] MEDS ORDERED: FERROUS SULFATE 325 MG TABLET PO SCH (09:00)
[2020-10-17] MEDS: MIDODRINE 5 MG TABLET PO SCH ×2 (09:29→12:08)
[2020-10-17] MEDS: DONEPEZIL 10 MG TABLET PO SCH (09:29)
[2020-10-17] MEDS: DOCUSATE SODIUM 100 MG CAPSULE PO SCH (09:30)
[2020-10-17] MEDS: HYDROcodone/APAP 5/325MG TABLET PO PRN (09:30)
[2020-10-17] MEDS: cefTRIAXone 1 GM VIAL IV SCH (09:38)
== END 2020-10-17 13:25 ==
LOC: MEDSUR 20:40 → ED 20:40 → MEDSUR 10-16 00:33
PROVIDERS: ADMIT Internal Medicine; ATTEND Internal Medicine